=== PATIENT | male | born 1995 | race Caucasian/White ===

== ENCOUNTER → 2016-12-22 | Outpatient (CLI) | payer OTHER ==
--- NOTE | 2016-12-22 10:36 | NUR ---
Eval 2 Hr/Client presented for an eval as a referral from probation after missing a lot of UAs and then having a dirty one for Al, Pot and cocaine.
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
== END | disposition home or self-care (01) ==
LOC: ADTC.GI 08:30
DX: F12.20 Cannabis dependence, uncomplicated (principal)